=== PATIENT | female | born 1980 | race Two or more races ===

== ENCOUNTER 2025-06-15 10:00 | Inpatient (IN) | payer OTHER ==
[~2025-06-15] VITALS: Ht 165.1 cm; Wt 71.7 kg
[2025-06-21] MEDS ORDERED: CEFTRIAXONE SODIUM 2,000 MG VIAL ONE (09:59)
[2025-06-21] MEDS ORDERED: METRONIDAZOLE/SODIUM CHLORIDE 500 MG/100 ML PIGGYBACK IV ONE (09:59)
[2025-06-21] MEDS ORDERED: LIDOCAINE HCL 1%/EPINEPHRINE 20ML VIAL IJ ONE (10:25)
[2025-06-21] MEDS ORDERED: BUPIVACAINE HCL/MPF 0.5% 30ML VIAL ONE (10:25)
[2025-06-21] MEDS ORDERED: DEXAMETHASONE SODIUM PHOSPHATE 4 MG/ML VIAL ONE (10:35)
[2025-06-21] MEDS ORDERED: SUGAMMADEX SODIUM 200 MG/2 ML VIAL IV ONE (13:31)
[2025-06-21] MEDS ORDERED: ONDANSETRON HCL 2 MG/ML VIAL IV PRN (14:45)
[2025-06-21] MEDS ORDERED: DEXTROSE 50 % IN WATER 0.5 G/ML DISP.SYRIN IV PRN (14:45)
[2025-06-21] MEDS ORDERED: MORPHINE SULFATE 4 MG/ML CARTRIDGE IV PRN (14:45)
[2025-06-21] MEDS ORDERED: RINGERS SOLUTION,LACTATED 1,000 ML IV SCH (14:45)
[2025-06-21] MEDS ORDERED: OxyCODONE HCL 5 MG TABLET (ROXICODONE) PO PRN (14:45)
[2025-06-21] MEDS ORDERED: ONDANSETRON HCL 2 MG/ML VIAL ONE (16:16)
[2025-06-21] MEDS ORDERED: LEVALBUTEROL HCL 0.63 MG/3 ML SOLUTION IH SCH (17:00)
[2025-06-21] MEDS ORDERED: GABAPENTIN 300 MG CAPSULE PO SCH (17:00)
[2025-06-21 18:00] LABS: BASO % 0.1 % (0.1-1.2); EOS # 0.01 (0.04-0.54); EOS % 0.1 % (0.7-7.0); LYMPH # 0.64 (1.18-3.74); LYMPH % 7.4 % (19.3-53.1); MEAN PLATELET VOLUME 9.80 fl (9.4-12.4); MONO # 0.24 (0.24-0.82); MONO % 2.8 % (4.7-12.5); NEUT # 7.77 (1.56-6.13); NEUT % 89.4 % (34.0-71.1); RED CELL DISTRIBUTION WIDTH 12.4 % (11.6-14.4)
[2025-06-21 18:36] LABS: BUN CREA RATIO 17.0 (7.0-25.0); CREATININE SERUM 0.53 mg/dL (0.55-1.02); GFR 124.19; GLUCOSE FASTING 152.0 mg/dL (65-100); OSMOLALITY SERUM 279.0 MOSM/KG (275-295)
[2025-06-21] MEDS ORDERED: FAMOTIDINE/PF 20 MG/2 ML VIAL ONE (19:57)
[2025-06-21] MEDS ORDERED: ACETAMINOPHEN 500 MG GEL..CAP PO SCH (20:00)
[2025-06-21] MEDS ORDERED: ACETAMINOPHEN 500 MG GEL..CAP PO ONE (20:04)
[2025-06-21] MEDS ORDERED: FAMOTIDINE/PF 20 MG/2 ML VIAL IV PUSH SCH (21:00)
[2025-06-21 21:04] VITALS: BP 124/79; O2SAT 98
[2025-06-22 01:09] VITALS: BP 110/70; O2SAT 99
[2025-06-22 06:53] LABS: BASO % 0.3 % (0.1-1.2); EOS # 0.01 (0.04-0.54); EOS % 0.1 % (0.7-7.0); LYMPH # 1.61 (1.18-3.74); LYMPH % 22.3 % (19.3-53.1); MEAN PLATELET VOLUME 10.10 fl (9.4-12.4); MONO # 0.65 (0.24-0.82); MONO % 9.0 % (4.7-12.5); NEUT # 4.90 (1.56-6.13); NEUT % 68.0 % (34.0-71.1); RED CELL DISTRIBUTION WIDTH 12.4 % (11.6-14.4)
[2025-06-22 07:18] LABS: BUN CREA RATIO 14.0 (7.0-25.0); CREATININE SERUM 0.57 mg/dL (0.55-1.02); GFR 114.19; GLUCOSE FASTING 104.0 mg/dL (65-100); OSMOLALITY SERUM 280.0 MOSM/KG (275-295)
[2025-06-22 07:55] VITALS: BP 128/83; O2SAT 98
[2025-06-22 15:50] VITALS: BP 108/71; O2SAT 98
[2025-06-22] MEDS ORDERED: AMINO ACIDS/PROTEIN HYDROLYS 30 ML BLIST.PACK PO SCH (17:00)
[2025-06-22] MEDS ORDERED: ENOXAPARIN SODIUM 40 MG/0.4 ML SYRINGE SUBCUTANEO SCH (17:00)
[2025-06-23 01:11] VITALS: BP 118/75; O2SAT 100
[2025-06-23 07:04] LABS: BASO % 0.5 % (0.1-1.2); EOS # 0.07 (0.04-0.54); EOS % 1.2 % (0.7-7.0); LYMPH # 1.91 (1.18-3.74); LYMPH % 32.2 % (19.3-53.1); MEAN PLATELET VOLUME 10.20 fl (9.4-12.4); MONO # 0.57 (0.24-0.82); MONO % 9.6 % (4.7-12.5); NEUT # 3.35 (1.56-6.13); NEUT % 56.3 % (34.0-71.1); RED CELL DISTRIBUTION WIDTH 12.9 % (11.6-14.4)
[2025-06-23 07:28] LABS: BUN CREA RATIO 12.0 (7.0-25.0); CREATININE SERUM 0.59 mg/dL (0.55-1.02); GFR 109.73; GLUCOSE FASTING 89.0 mg/dL (65-100); OSMOLALITY SERUM 286.0 MOSM/KG (275-295)
[2025-06-23 08:00] VITALS: BP 120/73; O2SAT 99
[2025-06-23] MEDS ORDERED: ENOXAPARIN SODIUM 40 MG/0.4 ML SYRINGE SUBCUTANEO SCH (09:00)
[2025-06-23] MEDS ORDERED: PAIN RELIEVER500 M2 PO (11:03)
[2025-06-23] MEDS ORDERED: GABAPENTIN300 MG PO (11:03)
== END 2025-06-23 13:51 | disposition home or self-care (01) | DRG 330 ==
LOC: O/R 06-21 09:00 → SURG 06-21 09:00
PROVIDERS: Internal Medicine Geriatric Medicine; ADMIT Surgery; ATTEND Surgery
PROC: 0DBP4ZZ Excision of Rectum, Percutaneous Endoscopic Approach (ICD-10-PCS; 2025-06-21)
PROC: 07BC4ZZ Excision of Pelvis Lymphatic, Percutaneous Endoscopic Approach (ICD-10-PCS; 2025-06-21)
PROC: 0DJD8ZZ Inspection of Lower Intestinal Tract, Via Natural or Artificial Opening Endoscopic (ICD-10-PCS; 2025-06-21)
PROC: 0DTN4ZZ Resection of Sigmoid Colon, Percutaneous Endoscopic Approach (ICD-10-PCS; principal; 2025-06-21 15:30)
PROC: 3E0F7GC Introduction of Other Therapeutic Substance into Respiratory Tract, Via Natural or Artificial Opening (ICD-10-PCS; 2025-06-22)
DX: C20 Malignant neoplasm of rectum (principal); K62.5 Hemorrhage of anus and rectum; D12.6 Benign neoplasm of colon, unspecified; R59.0 Localized enlarged lymph nodes; D64.89 Other specified anemias; J45.20 Mild intermittent asthma, uncomplicated